=== PATIENT | female | born 1945 | race Caucasian/White ===

== ENCOUNTER → 2017-06-15 | Outpatient (CLI) | payer MEDICARE ==
[2017-06-15 11:24] LABS: BILIRUBIN,URINE NEGATIVE (NEGATIVE); KETONES,URINE 1+ (NEGATIVE); LEUKOCYTE ESTERASE ,URINE 3+ (NEGATIVE); NITRITE,URINE NEGATIVE (NEGATIVE); PH,URINE 7 (5-9); PROTEIN,URINE 3+ (NEGATIVE); UROBILINOGEN,URINE 4 MG/DL (NORMAL)
[2017-06-15 11:33] LABS: WBC,URINE TNTC /HPF
== END ==
LOC: CVS 11:18
PROVIDERS: ATTEND Family Medicine
DX: R82.90 Unspecified abnormal findings in urine (principal)
CPT/HCPCS: 81000; 87088; 87186

== ENCOUNTER → 2017-08-09 | Outpatient (CLI) | payer MEDICARE | LOC: CVS 12:55 | PROVIDERS: ATTEND Family Medicine | DX: R50.9 Fever, unspecified (principal); R05 Cough | CPT/HCPCS: 87804 ==

== ENCOUNTER → 2018-07-10 | Outpatient (CLI) | payer OTHER, MEDICARE, MEDICAID | LOC: HOSHH 17:58 | PROVIDERS: ATTEND Family Medicine | DX: R82.998 Other abnormal findings in urine (principal); R39.89 Other symptoms and signs involving the genitourinary system; Z87.440 Personal history of urinary (tract) infections | CPT/HCPCS: 87077; 87088 ==